=== PATIENT | male | born 1960 | race Caucasian/White ===

== ENCOUNTER 2019-02-18 16:42 | Emergency (ER) | payer MEDICAID ==
[~2019-02-18] VITALS: Ht 177.8 cm; Wt 81.6 kg
[2019-02-18 16:48] VITALS: BP 126/83
--- NOTE | 2019-02-18 17:02 | NUR ---
58/M BIBA FROM [facility] FOR EVAL HEAD INJURY S/P FALL X TODAY. HX OF EPILEPSY, PARKINSON & DEMENTIA. PT ACT NEUROLOGICALLY AT BASELINE , ANSWER ONLY YES/ NO QUESTION. PER EMS PT FELL & HEAD HIT TABLE BUT NO WOUND OR BUMP AT HEAD. BLOOD SUGAR 116.PATIENT POSITIONED FOR COMFORT; HOB ELEVATED; BEDRAILS UP X2; BED DOWN. ER MD MADE AWARE OF PT STATUS.
--- NOTE | 2019-02-18 17:41 | NUR ---
PT TAKEN TO CT
[2019-02-18 19:01] VITALS: BP 118/82
--- NOTE | 2019-02-18 19:01 | NUR ---
Patient discharged with v/s stable. Written and verbal after care instructions given and explained. Patient verbalized understanding. W/C TO CAR. All questions addressed prior to discharge. Advised to follow up with PMD.
--- NOTE | 2019-02-18 19:01 | NUR ---
Gilmar vázquez in ED - 02/18/19 at 1902 by [facility] Patient discharged with v/s stable. Written and verbal after care instructions given and explained. Patient verbalized understanding. Ambulatory with steady gait. All questions addressed prior to discharge. Advised to follow up with PMD.
== END 2019-02-18 19:01 | disposition home or self-care (01) ==
LOC: MED 16:42
DX: S09.90XA Unspecified injury of head, initial encounter (principal); G20 Parkinson's disease; F02.80 Dementia in other diseases classified elsewhere, unspecified severity, without behavioral disturbance, psychotic disturbance, mood disturbance, and anxiety; W18.30XA Fall on same level, unspecified, initial encounter; Y93.89 Activity, other specified; Y92.89 Other specified places as the place of occurrence of the external cause; Y99.8 Other external cause status
CPT/HCPCS: 70450; 72125; 99284